=== PATIENT | female | born 2000 | race Hispanic/Latino ===

== ENCOUNTER 2023-03-26 01:37 | Emergency (ER) | payer BC ==
[~2023-03-26] VITALS: Ht 154.9 cm; Wt 54.9 kg
[2023-03-26] MEDS ORDERED: IBUP-1493 PO (03:44)
[2023-03-26 05:02] VITALS: BP 129/75
== END 2023-03-26 05:12 | disposition home or self-care (01) ==
LOC: EDH 01:37
DX: S09.90XA Unspecified injury of head, initial encounter (principal); M54.2 Cervicalgia; F41.9 Anxiety disorder, unspecified; F32.A Depression, unspecified; Y08.89XA Assault by other specified means, initial encounter; Y93.89 Activity, other specified; Y92.89 Other specified places as the place of occurrence of the external cause; Y99.8 Other external cause status
CPT/HCPCS: 70450; 70486; 70490; 72125; 81025

== ENCOUNTER 2024-05-16 12:42 | Emergency (ER) | payer BC, OTHER ==
[~2024-05-16] VITALS: Ht 154.9 cm; Wt 58.1 kg
[~2024-05-16 12:42] MED LIST: IBUP-1493 PO
[2024-05-16 13:23] LABS: APPEARANCE,URINE CLOUDY (CLEAR); BILIRUBIN,URINE NEGATIVE (NEGATIVE); COLOR,URINE YELLOW (YELLOW); GLUCOSE, URINE (UA) NEGATIVE (NEGATIVE); KETONES,URINE >=80 mg/dL (NEGATIVE); LEUKOCYTE ESTERASE ,URINE 25 Leu/uL (NEGATIVE); NITRATE,URINE NEGATIVE (NEGATIVE); OCCULT BLOOD,URINE NEGATIVE (NEGATIVE); PH,URINE 6.5 (5.0-8.0); PROTEIN,URINE 50 mg/dL (NEGATIVE); UROBILINOGEN,URINE 0.2 mg/dL (0.2-1.0)
[2024-05-16 13:25] LABS: HCG,QUALITATIVE URINE NEGATIVE (NEGATIVE)
[2024-05-16 13:29] LABS: BASOPHILS # (AUTO) 0.02 K/uL (0.00-0.20); BASOPHILS % (AUTO) 0.2 % (0.0-5.0); EOSINOPHILS # (AUTO) 0.02 K/uL (0.00-0.70); EOSINOPHILS % (AUTO) 0.2 % (0.0-8.0); HEMATOCRIT 39.2 % (36-48); IMMATURE GRANULOCYTE ABSOLUTE 0.05 K/uL (0-1); LYMPHOCYTES # (AUTO) 1.8 K/uL (1.0-4.8); LYMPHOCYTES % (AUTO) 15.3 % (21.0-51.0); MEAN CORPUSCULAR HEMOGLOBIN 27.9 pg (27.0-33.0); MEAN CORPUSCULAR HGB CONC 33.2 g/dL (32.0-36.0); MEAN CORPUSCULAR VOLUME 84.1 fL (79-99); MONOCYTES # (AUTO) 0.5 K/uL (0.1-1.0); MONOCYTES % (AUTO) 4.6 % (3.0-13.0); NEUTROPHILS # (AUTO) 9.1 K/uL (1.8-7.7); NEUTROPHILS % (AUTO) 79.3 % (40.0-77.0); PLATELET COUNT (AUTO) 311 K/uL (130-400); RED BLOOD CELL COUNT(AUTO) 4.66 MIL/uL (4.00-5.50); RED CELL DISTRIBUTION WIDTH 13.2 % (11.0-15.5); WHITE BLOOD COUNT (AUTO) 11.5 K/uL (4.8-10.8)
[2024-05-16 13:29] LABS: ADD UA MICROSCOPIC YES
[2024-05-16 13:31] LABS: BACTERIA,URINE RARE /HPF (None Seen); MUCUS,URINE MANY LPF (None Seen); OTHER CASTS, URINE 1 /LPF (None Seen); SQUAMOUS EPITHELIAL CELL,UR MOD /HPF (0-2)
[2024-05-16 13:43] LABS: ALBUMIN 3.8 g/dL (3.5-5.0); BILIRUBIN,TOTAL 0.5 mg/dL (0.2-1.0); CREATININE 0.8 mg/dL (0.5-1.0); POTASSIUM 3.7 mmol/L (3.5-5.1); TOTAL PROTEIN, SERUM 7.7 g/dL (6.0-8.3)
[2024-05-16] MEDS: MAG/ALUM/SIMETH 30 ML UDCUP PO ONE (14:36)
[2024-05-16] MEDS: LIDOCAINE HCL 2% VISCOUS 15 ML UDCUP PO ONE (14:36)
[2024-05-16] MEDS ORDERED: CEPH500B PO (16:51)
[2024-05-16 17:15] VITALS: BP 112/70; PULSE 87; RESP 16; O2SAT 99
== END 2024-05-16 17:16 | disposition home or self-care (01) ==
LOC: EDH 12:42
DX: N39.0 Urinary tract infection, site not specified (principal); K21.9 Gastro-esophageal reflux disease without esophagitis; F41.9 Anxiety disorder, unspecified; Z79.899 Other long term (current) drug therapy
CPT/HCPCS: 36415; 80053; 81001; 81025; 83690; 85025